=== PATIENT | female | born 1980 | race American Indian/Alaskan Native ===

== ENCOUNTER 2020-09-16 14:34 | Emergency (ER) | payer OTHER, MEDICAID ==
[2020-09-16 15:08] VITALS: BP 104/68
[2020-09-16] MEDS ORDERED: ACETAMINOPHEN 325 MG TAB ONE (15:19)
[2020-09-16] MEDS ORDERED: ACETAMINOPHEN 325 MG TAB PO ONE (15:20)
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
== END 2020-09-16 16:59 | disposition home or self-care (01) ==
LOC: ED 14:34
DX: S39.012A Strain of muscle, fascia and tendon of lower back, initial encounter (principal); S29.019A Strain of muscle and tendon of unspecified wall of thorax, initial encounter; Z79.899 Other long term (current) drug therapy; Z88.2 Allergy status to sulfonamides; Z88.8 Allergy status to other drugs, medicaments and biological substances; V49.59XA Passenger injured in collision with other motor vehicles in traffic accident, initial encounter; Y92.410 Unspecified street and highway as the place of occurrence of the external cause; Y93.89 Activity, other specified; Y99.8 Other external cause status
CPT/HCPCS: 72072; 72100